=== PATIENT | female | born 1955 | race Caucasian/White ===

== ENCOUNTER 2018-08-04 17:28 | Observation (INO) ==
[2018-08-04] MEDS ORDERED: Acetaminophen 325 MG TABLET PO PRN (19:34)
[2018-08-04] MEDS ORDERED: Hyoscyamine SL 0.125 MG TAB.SUBL SL ONE (20:02)
--- NOTE | 2018-08-04 20:18 | Internal Med History&Physical ---
Date of Encounter: 08/04/18 Time of Encounter: 20:17 Internal Medicine - H&P: HPI Chief complaint: bleeding Admitted From: Home Plans for Post Hospital Care: Home History of present illness: Suzanne Walker is a 62 year old woman with GERD who presented to [facility] with complaints of acute onset abdominal cramping that started last night and was followed by diarrheal depositions and that culminated in passing bright red blood per rectum that continued into the day which made her seek medical attention. It was accompanied by nausea and vomiting throughout but denied fever and chills. She says the diarrhea has stopped but the bleeding has continued and the abdominal cramping persists, localizing it to her left hemiabdomen. Lab work done reavealed a WBC of 13.[address] scan showed wall thickening in the descending colon and sigmoid colon with infiltration of the fat adjacent to the colon suggesting colitis. She was transferred here for further care. Vitals: Reviewed General: Well-developed white woman lying in bed with mild discomfort noted in her appearance. Skin: Warm, pale and dry HEENT: Moist mucous membranes. No conjunctivae pallor. Neck: No lymphadenopathy. No JVD. No carotid bruits. No palpable thyroid. Chest: Normal thoracic expansion. Normal breath sounds. Clear to auscultation. Heart: Normal S1 & S2; rhythmic. No rubs or murmurs. Abdomen: Non-distended, soft and minimally tender to palpation in the left hemiabdomen. No peritoneal reaction. Extremities: No clubbing, cyanosis or edema. No calf tenderness. Normal distal pulses. Neurological: Awake, alert and oriented to person, place and time. No focal deficits. Psych: Affect appropriate. Assessment/Plan 1. Acute colitis: Seemingly localized and without systemic signs of illness other than the mild leukocyte count elevation. Will place her empirically on metronidazole/ciprofloxacin. She is no longer having diarrhea but if it recurs will send a stool sample for testing. 2. Lower GI bleed: Will consult GI for evaluation. She reports a prior precancerous polyp removed but has since been well on follow up. Unclear if this bleeding is secondary to inflammation that has irritated the mucosa, an ulcerated polyp or an angiodysplastic lesion. Monitor H/H and clinical assessment for ongoing bleeding necessitating a more urgent intervention. 3. Osteoarthritis: Hold NSAIDs for now. APAP prn. 4. GERD: Will start PPI. Past Med Surg Social Fam HX - Past Medical History Medical history: arthritis, hyperlipidemia, other Additional medical history: fibrocystic breast disease, hx polyps Psychiatric history: no psych history - Past Surgical History Surgical History: other Additional surgical history: tubal, lymph node removed from neck - Social History Smoking Status: Never smoker Smokeless Tobacco Status: No Alcohol use: none Drug use: none Internal Medicine - H&P: Meds Celecoxib [Celebrex] 200 mg PO BID 06/23/15 [History] Lovastatin [Mevacor] 40 mg PO HS 06/23/15 [History] Ranitidine HCl [Zantac 75] 150 mg PO BID 06/23/15 [History] Ibuprofen [Motrin Ib] 200 mg PO Q4-6H PRN 08/04/18 [History] Allergy/AdvReac Type Severity Reaction Status Date / Time No Known Allergies Allergy Verified 08/04/18 18:56 All Systems PM: A 10-system review of systems was performed and is negative for pertinent findings except as documented above in the HPI. Family history reviewed and found non-contributory. - Constitutional Vitals: Temp Pulse Resp BP Pulse Ox 98.9 F 59 14 120/57 95 08/04/18 19:39 08/04/18 19:39 08/04/18 19:39 08/04/18 19:39 08/04/18 19:39 Exam: . - Time Spent With Patient Total time spent is greater than 50% in coordination of care (as documented) at patient's floor/unit and/or counseling patient: Greater than 35 minutes
[2018-08-04 20:19] LABS: Hematocrit 37.1 % (35.3-44.9)
[2018-08-04] MEDS: Ringers Solution, Lactated 1,000 ML IVC SCH (21:09)
[2018-08-04] MEDS: Pantoprazole 40 MG VIAL IVP SCH (21:10)
[2018-08-04] MEDS: MetroNIDAZOLE 500 MG/100 ML 500 MG/100 ML BAG IVPB SCH (23:38)
[2018-08-05] MEDS: Ondansetron 4 MG/2 ML VIAL IVP PRN ×2 (03:28→23:31)
[2018-08-05 05:26] LABS: Hematocrit 35.8 % (35.3-44.9); Hemoglobin 11.5 g/dL (11.5-15.4)
[2018-08-05] MEDS: Pantoprazole 40 MG VIAL IVP SCH ×2 (05:27→18:32)
[2018-08-05] MEDS: Ringers Solution, Lactated 1,000 ML IVC SCH (05:27)
[2018-08-05] MEDS: MetroNIDAZOLE 500 MG/100 ML 500 MG/100 ML BAG IVPB SCH ×3 (08:57→23:30)
--- NOTE | 2018-08-05 10:27 | Internal Med Progress Note ---
Hospitalist Progress Note - Encounter Date of Encounter: 08/05/18 Time of Encounter: 08:45 - Subjective Interval History: H&P reviewed. 62-year-old male with history of GERD was admitted for left-sided abdominal pain and episodes of bright red blood per rectum. CT scan demonstrated descending and sigmoid colon colitis with leukocytosis on lab. Reports mild improvement in abdominal pain but continues to have intermittent episodes of rectal bleeding. No fever overnight - Exam Vitals: Temp Pulse Resp BP Pulse Ox 98.6 F 61 14 150/73 95 08/05/18 10:17 08/05/18 10:17 08/05/18 10:17 08/05/18 10:17 08/05/18 10:17 Exam: General: Alert and oriented, not in acute distress. Cardiovascular:Normal S1 & S2, No JVD. Pulse regular. Lungs: clear to auscultation, no wheezes/rales Abdomen:Soft, mild left lower quadrant tenderness without rebound/guarding/rigidity Extremities:No deformity or swelling Neurological:Normal cognition and motor skills. Non-focal - Assessment and Plan (1) Colitis Current Visit: Yes Status: Acute Assessment and Plan: Started on Cipro/Flagyl, continue monitor WBC and stool output. If patient has profuse diarrhea, will check GI panel GI consulted (2) Lower gastrointestinal hemorrhage Current Visit: Yes Status: Acute Assessment and Plan: Despite intermittent episodes of rectal bleeding, her hemoglobin appears to be stable. Hemodynamically stable as well will continue to trend H&H (3) GERD (gastroesophageal reflux disease) Current Visit: Yes Status: Chronic Assessment and Plan: PPI DVT Prophylaxis: EPCD due to rectal bleeding - Time Spent with Patient Total time spent is greater than 50% in coordination of care (as documented) at patient's floor/unit and/or counseling patient: 25 - 35 minutes Plan of Care Discussed with: patient Internal Medicine: Result - Labs CBC & Chem 7: 08/05/18 04:56 Labs: Short CBC 08/04/18 08/05/18 Range/Units 19:52 04:56 Hgb 12.0 11.5 (11.5-15.4) g/dL Hct 37.1 35.8 (35.3-44.9) % Consult Discharge Plan - Plan Referrals: Lima Davalos, CRYPTOGRAPHIC CLERK [Primary Care Provider] - (3) GERD (gastroesophageal reflux disease) Qualifiers: Esophagitis presence: esophagitis presence not specified Qualified Code(s): K21.9 - Gastro-esophageal reflux disease without esophagitis
--- NOTE | 2018-08-05 12:43 | Gastroenterology Consult Note ---
<Kym Ramachandran - Last Filed: 08/05/18 12:40> Date of Encounter: 08/05/18 Time of Encounter: 09:30 - Assessment and plan (1) Lower gastrointestinal hemorrhage Status: Acute Assessment and plan: 62-year-old female presents with bright red rectal bleeding. CT of the abdomen shows thickening in the sigmoid and descending colon. hemoglobin is stable at 11.5.She likely has ischemic colitis versus infectious colitis. We will order GI panel. She has been started on IV antibiotics. Would recommend colonoscopy in 4-6 weeks after inflammation has resolved. Follow-up with GI as an outpatient. (2) Colitis Status: Acute - Time Spent With Patient Total time spent is greater than 50% in coordination of care (as documented) at patient's floor/unit and/or counseling patient: GI History of Present Illness - Data of Consult Patient: new to practice Consult date: 08/05/18 Requesting Physician: Trae Castano MD - Consult Narrative Reason for consult: colitis History of present illness: Suzanne Walker is a 62 year old woman with GERD who presented to [facility] with complaints of acute onset abdominal cramping that started last night and was followed by diarrhea and passing bright red blood per rectum that continued into the day which made her seek medical attention. It was accompanied by nausea and vomiting throughout but denied fever and chills. She says the diarrhea has stopped but the bleeding has continued and the abdominal cramping persists, localizing it to her left hemiabdomen. Lab work done reavealed a WBC of 13.[address] scan showed wall thickening in the descending colon and sigmoid colon with infiltration of the fat adjacent to the colon suggesting colitis. Colon: August 2015 tortuous colon, no specimens collected. NSAIDs: Celebrex and Motrin Anticoagulants, none Past Med Surg Social Fam HX - Past Medical History Medical history: arthritis, hyperlipidemia, other Additional medical history: fibrocystic breast disease, hx polyps Psychiatric history: no psych history - Past Surgical History Surgical History: other Additional surgical history: tubal, lymph node removed from neck - Social History Smoking Status: Never smoker Smokeless Tobacco Status: No Alcohol use: none Drug use: none Review of Systems: GI: as per [facility] COURT[facility] OREILLES GENERAL: denies fever, has some chills EYES: denies yellow discoloration ENT: denies pain with swallowing or difficulty swallowing CARDIO: denies chest pain, palpitations RESP: No Shortness of breath with exertion : denies change in color of urine NEURO: denies any weakness HEME: Denies any bruising MS: denies joint pain, joint swelling or back pain. DERM: denies rash or itching PSYCH: Denies history of anxiety or depression - Constitutional Vitals: Temp Pulse Resp BP Pulse Ox 98.6 F 61 14 150/73 95 08/05/18 10:17 08/05/18 10:17 08/05/18 10:17 08/05/18 10:17 08/05/18 10:17 Exam: CONSTITUTIONAL:alert, no acute distress.HEAD:normocephalic.EYES:no jaundice.NECK:no obvious swelling.HEART:regular rate and rhythm, no murmurs.LUNGS:bilateral good air entry.ABDOMEN:non distended, soft, tender RLQ, no masses palpable, no organomegaly.RECTAL EXAM:Deferred.EXTREMITIES:no clubbing, cyanosis or edema.SKIN:no stigmata of chronic liver disease.NEUROL OGIC:no obvious focal defect. Results - Labs CBC & Chem 7: 08/05/18 04:56 Labs: Entire Visit 08/05/18 04:56 Hgb 11.5 Hct 35.8 Consult Discharge Plan - Plan Instructions: Rectal Bleeding (GEN), Infectious Colitis (GEN) Referrals: Lima Davalos CNP [Primary Care Provider] - (Web request. Office will call with date and time of appointment. Thank you) Lisbet Suarez MD [Partnered Physician] - (Web request. Office will call with date and time of appointment. Thank you) Prescriptions: Ciprofloxacin [Cipro] 500 mg PO BID 5 Days #10 tablet metroNIDAZOLE [Flagyl] 500 mg PO TID 5 Days #15 tablet Ondansetron ODT [Zofran ODT] 4 mg SL Q6HR PRN #20 tab.rapdis PRN Reason: Nausea And Vomiting <Estrada Bolton - Last Filed: 08/07/18 05:44> Date of Encounter: 08/07/18 - Time Spent With Patient Total time spent is greater than 50% in coordination of care (as documented) at patient's floor/unit and/or counseling patient: GI History of Present Illness - Data of Consult Requesting Physician: Trae Castano MD - Consult Narrative History of present illness: Ms. Walker is a 62 year old female - Constitutional Vitals: Temp Pulse Resp BP Pulse Ox 98.2 F 70 18 121/58 97 08/06/18 11:12 08/06/18 11:12 08/06/18 11:12 08/06/18 11:12 08/06/18 11:12 Results - Labs CBC & Chem 7: 08/06/18 07:42 08/06/18 07:42 - Attending Attestation 62 year old female with ischemic colitis in all likelihood. Agree with GI panel and plan colonoscopy as outpatient in 4 weeks. IV hydration and measures as delineated above I have personally performed a face to face evaluation on this patient. I have reviewed and agree with the care plan. History and Exam by me shows:
[2018-08-05 16:10] LABS: Hematocrit 35.5 % (35.3-44.9); Hemoglobin 11.3 g/dL (11.5-15.4)
[2018-08-05 20:54] LABS: Adenovirus F 40/41 PCR Not detected (Not detect); Astrovirus PCR Not detected (Not detect); C.difficile Toxin A/B Gene PCR Not detected (Not detect); Campylobacter by PCR Not detected (Not detect); Cryptosporidium by PCR Not detected (Not detect); Cyclospora cayetanensis PCR Not detected (Not detect); E. coli O157 by PCR Not detected (Not detect); Entamoeba histolytica PCR Not detected (Not detect); Enteroaggregative E.coli(EAEC) Not detected (Not detect); Enteropathogenic E.coli(EPEC) Not detected (Not detect); Enterotoxigenic E.coli (ETEC) Not detected (Not detect); Giardia lamblia PCR Not detected (Not detect); Norovirus GI/GII PCR Not detected (Not detect); Plesiomonas shigelloides PCR Not detected (Not detect); Rotavirus A PCR Not detected (Not detect); Salmonella PCR Not detected (Not detect); Sapovirus PCR Not detected (Not detect); Shig/EnteroinvasiveE coli EIEC Not detected (Not detect); Shigalike tox-prod E coli STEC Not detected (Not detect); Vibrio PCR Not detected (Not detect); Vibrio cholerae PCR Not detected (Not detect); Yersinia enterocolitica PCR Not detected (Not detect)
[2018-08-06] MEDS: Pantoprazole 40 MG VIAL IVP SCH (05:13)
[2018-08-06] MEDS: Ondansetron 4 MG/2 ML VIAL IVP PRN (07:54)
[2018-08-06] MEDS: MetroNIDAZOLE 500 MG/100 ML 500 MG/100 ML BAG IVPB SCH (07:55)
[2018-08-06 08:16] LABS: Basophils % 0.3 %; Eosinophils # 0.2 K/mcL (0.0-0.6); Eosinophils % 1.4 %; Hematocrit 33.1 % (35.3-44.9); Hemoglobin 10.7 g/dL (11.5-15.4); Immature Granulocytes % 0.5 % (0-4); Lymphocytes # 1.7 K/mcL (0.6-4.6); Lymphocytes % 14.2 %; Mean Corpuscular HGB Conc 32.3 g/dL (31.6-35.5); Mean Corpuscular Hemoglobin 29.2 pg (28.0-33.3); Mean Corpuscular Volume 90.2 fL (83.0-100.0); Mean Platelet Volume 11.9 fL (9.4-12.4); Monocytes # 1.2 K/mcL (0.0-1.3); Monocytes % 10.2 %; Neutrophils # 8.5 K/mcL (1.6-8.9); Platelet Count 215 K/mcL (140-400); Red Blood Count 3.67 M/mcL (3.82-4.97); Segmented Neutrophils % 73.4 %; White Blood Count 11.6 K/mcL (4.3-11.1)
[2018-08-06 08:34] LABS: BUN/Creatinine Ratio 8 (6-26); Blood Urea Nitrogen 7 mg/dL (8-23); Calcium 8.7 mg/dL (8.6-10.3); Carbon Dioxide 28 mEq/L (23-29); Chloride 107 mEq/L (98-107); Glucose 97 mg/dL (70-105); Magnesium 2.1 mg/dL (1.6-2.6); Osmolality,Calculated 286 (280-300); Potassium 3.4 mEq/L (3.5-5.1); Sodium 139 mEq/L (136-145); eGFR For African Americans > 60 (> 60); eGFR For Non-African Americans > 60 (> 60)
--- NOTE | 2018-08-06 09:19 | Discharge Summary ---
- NOTES TO OUTPATIENT PROVIDER Notes to Outpatient Provider: Follow-up with GI as outpatient. Repeat CBC in 5 days Date of Encounter: 08/06/18 Time of Encounter: 08:00 - Discharge Diagnosis (1) Colitis Priority: Primary Status: Acute (2) Lower gastrointestinal hemorrhage Priority: Secondary Status: Acute (3) GERD (gastroesophageal reflux disease) Priority: Secondary Status: Chronic Qualifiers: Esophagitis presence: esophagitis presence not specified Qualified Code(s): K21.9 - Gastro-esophageal reflux disease without esophagitis Hospital course: Ms. Walker is a 62 year old female with history of GERD was admitted for left- sided abdominal pain and episodes of bright red blood per rectum. CT scan demonstrated descending and sigmoid colon colitis with leukocytosis on lab. Clinically improved with IV Cipro/flagyl and Hb remained stable. GI panel -ve. She was also hemodynamically stable throughout her stay. Seen in consultation with GI and pt will need outpatient colonoscopy 4-6 weeks after the completion of 7 days of abx. Discharge discussed with: patient, nurse - Time Spent with Patient Total time spent providing and/or coordinating discharge services: 28 mins - Discharge Medications Prescriptions: New Ciprofloxacin [Cipro] 500 mg PO BID 5 Days #10 tablet metroNIDAZOLE [Flagyl] 500 mg PO TID 5 Days #15 tablet Continued RX: Ranitidine HCl [Zantac 75] 150 mg PO BID RX: Lovastatin [Mevacor] 40 mg PO HS RX: Celecoxib [Celebrex] 200 mg PO BID RX: Ibuprofen [Motrin Ib] 200 mg PO Q4-6H PRN PRN Reason: BACK PAIN Home Medications: Celecoxib [Celebrex] 200 mg PO BID 06/23/15 [History] Lovastatin [Mevacor] 40 mg PO HS 06/23/15 [History] Ranitidine HCl [Zantac 75] 150 mg PO BID 06/23/15 [History] Ibuprofen [Motrin Ib] 200 mg PO Q4-6H PRN 08/04/18 [History] Ciprofloxacin [Cipro] 500 mg PO BID 5 Days #10 tablet 08/06/18 [Rx] metroNIDAZOLE [Flagyl] 500 mg PO TID 5 Days #15 tablet 08/06/18 [Rx] Allergies/Adverse Reactions: Allergy/AdvReac Type Severity Reaction Status Date / Time No Known Allergies Allergy Verified 08/04/18 18:56 Date of admission: 08/04/18 18:30 Primary care physician: Lima Davalos CNP Consults: 08/04/18 20:04 Consult to Gastroenterology [CONS] Routine Consulting Provider: [facility] Valeria Reason for Consult: 62 year old woman who presented with acute abdominal cramping and diarrhea with demarcus bright red blood per rectum multiple times Call Completed: No - Constitutional Vitals: Temp Pulse Resp BP Pulse Ox 98.3 F 54 18 96/57 95 08/06/18 07:27 08/06/18 07:27 08/06/18 07:27 08/06/18 07:27 08/06/18 08:17 Exam: General: Alert and oriented, not in acute distress. Cardiovascular:Normal S1 & S2, No JVD. Pulse regular. Lungs: clear to auscultation, no wheezes/rales Abdomen:Soft, mild left lower quadrant tenderness without rebound/guarding/rigidity Extremities:No deformity or swelling Neurological:Normal cognition and motor skills. Non-focal - Patient Status Disposition: Home, Self-Care Functional capacity at discharge: independent ambulation Overall status at discharge: patient is progressing back to baseline - Discharge Instructions Follow Up With: Lima Davalos CNP [Primary Care Provider] - Lisbet Suarez MD [Partnered Physician] - - Diet and Activity Activity: resume usual activities as tolerated Diet: advance to your usual diet
[2018-08-06 11:18] VITALS: BP 121/58
== END 2018-08-06 13:42 | disposition home or self-care (01) ==
LOC: 3ANU → SUATTDRO 18:30
PROVIDERS: ADMIT Internal Medicine Nephrology; ATTEND Internal Medicine